=== PATIENT | male | born 1965 | race Caucasian/White ===

== ENCOUNTER → 2024-08-13 06:19 | Day surgery (SDC) | payer OTHER, SELFPAY | LOC: GI 06:19 | PROVIDERS: ATTENDING PHYSICIAN Internal Medicine Gastroenterology | DX: Z08 Encounter for follow-up examination after completed treatment for malignant neoplasm (principal); D12.0 Benign neoplasm of cecum; D12.3 Benign neoplasm of transverse colon; D12.4 Benign neoplasm of descending colon; Z98.0 Intestinal bypass and anastomosis status; Z85.038 Personal history of other malignant neoplasm of large intestine | CPT/HCPCS: 45385; 88305 ==